=== PATIENT | male | born 1990 | race Caucasian/White ===

== ENCOUNTER 2017-09-01 19:50 | Emergency (ER) | payer OTHER ==
[~2017-09-01] VITALS: Ht 172.7 cm; Wt 67.5 kg
[2017-09-01 19:53] VITALS: TEMP 37.8; Ht 172.7 cm; Wt 67.5 kg
[2017-09-01] MEDS ORDERED: KETOROLAC TROMETHAMINE 30 MG/ML VIAL IV STA (20:08)
[2017-09-01] MEDS ORDERED: SODIUM CHLORIDE 0.9% 1000ML 2,000 ML IV STA (20:08)
[2017-09-01 20:21] VITALS: O2SAT 97
--- NOTE | 2017-09-01 20:27 | EMERGENCY ROOM VISIT NOTE ---
History First contact with patient: 19:57 Chief Complaint: FLU LIKE SX Stated Complaint: 102 FEVER,HEAD CONGESTION,MUSCLE ACHES History of Present Illness The patient is a 27 year old male who presents to the Emergency Room with complaints of bilateral lower back pain, body aches, headaches, cough and congestion, and fevers that started this morning. He reports fevers up to 102 today. He has been taking Sudafed and Tylenol for his symptoms, his last dose of Tylenol was 7 PM today. He denies any chest pain, shortness of breath, palpitations, dizziness or syncope, neck pain or stiffness, abdominal pain, nausea, vomiting, diarrhea, bloody or black stool, or rash. He denies any urinary symptoms of frequency, urgency, or dysuria, but does state that he has had decreased urination and his urine has been darker than usual. He states he did not get a flu shot this year. 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 Review of Systems A complete 10 point review of systems was reviewed with the patient with pertinent positives and negatives as per history of present illness. All else were negative. Past Medical/Surgical History No significant past medical or surgical history Social History Smoking Status: Never Smoker Alcohol Use: occasionally Drug Use: marijuana Occupation Status: [employer] Current/Historical Medications Scheduled Oseltamivir Phosphate (Tamiflu), 1 CAP PO BID Allergies No known allergies Physical Exam Vital Signs Date Time Temp Pulse Resp B/P (MAP) Pulse Ox O2 Delivery O2 Flow Rate FiO2 09/01/17 22:52 103 15 129/59 100 09/01/17 21:56 99 09/01/17 21:36 96 12 118/59 98 Room Air 09/01/17 20:21 97 Room Air 09/01/17 19:53 37.8 126 16 141/77 97 Room Air Physical Exam CONSTITUTIONAL: Pleasant and cooperative. No acute distress, nontoxic- appearing. Moderately dehydrated. HEENT: Normocephalic, atraumatic. Pupils equal, round and reactive to light, EOMI. TMs normal. Pharynx normal. Dry mucous membranes. NECK: Supple, full active range of motion without discomfort. No nuchal rigidity, no meningismus. No cervical adenopathy. RESPIRATORY: Clear to auscultation bilaterally with no wheezing, crackles, rhonchi or stridor. Equal expansion bilaterally. CARDIOVASCULAR: Tachycardic. Regular rhythm with no murmurs, rubs or gallops. Normal peripheral perfusion. No edema. GASTROINTESTINAL: Soft, nontender, nondistended. No palpable masses or HSM. Bowel sounds present in all quadrants. MUSCULOSKELETAL: Full range of motion of all joints without discomfort. INTEGUMENTARY: No rash or other significant dermatologic conditions noted. NEUROLOGIC: Alert and oriented X 4 with normal affect. Cranial nerves II-XII grossly intact. No focal neurologic deficits noted. Normal strength and sensation all 4 extremities, normal speech, normal gait observed. Medical Decision & Procedures ER Provider Diagnostic Interpretation: TWO VIEW CHEST CLINICAL HISTORY: Fever. Sepsis. FINDINGS: PA and lateral chest radiographs are obtained. No prior studies are available for comparison at the time of dictation. The cardiomediastinal silhouette is unremarkable. The lungs and pleural spaces are clear. There is no pneumothorax. The bony thorax appears intact. There is mild thoracolumbar scoliosis. IMPRESSION: No active disease in the chest. Laboratory Results 09/01/17 20:29 Red Blood Count 5.42, Mean Corpuscular Volume 83.6, Mean Corpuscular Hemoglobin 30.4, Mean Corpuscular Hemoglobin Concent 36.4, Mean Platelet Volume 10.4, Neutrophils (%) (Auto) 84.6, Lymphocytes (%) (Auto) 5.7, Monocytes (%) (Auto) 8.9, Eosinophils (%) (Auto) 0.6, Basophils (%) (Auto) 0.1, Neutrophils # (Auto) 5.79, Lymphocytes # (Auto) 0.39, Monocytes # (Auto) 0.61, Eosinophils # (Auto) 0.04, Basophils # (Auto) 0.01 09/01/17 20:29 Test 09/01/17 20:20 09/01/17 20:29 Urine Color YELLOW Urine Appearance CLEAR (CLEAR) Urine pH >= 9.0 (4.5-7.5) Urine Specific [place] 1.021 (1.000-1.030) Urine Protein NEG (NEG) Urine Glucose (UA) NEG (NEG) Urine Ketones NEG (NEG) Urine Occult Blood NEG (NEG) Urine Nitrite NEG (NEG) Urine Bilirubin NEG (NEG) Urine Urobilinogen NEG (NEG) Urine Leukocyte Esterase NEG (NEG) Influenza Type A Antigen Neg for Influ A (NEG) Influenza Type B Antigen Neg for Influ B (NEG) White Blood Count 6.85 K/uL (4.8-10.8) Red Blood Count 5.42 M/uL (4.7-6.1) Hemoglobin 16.5 g/dL (14.0-18.0) Hematocrit 45.3 % (42-52) Mean Corpuscular Volume 83.6 fL (80-100) Mean Corpuscular Hemoglobin 30.4 pg (25-34) Mean Corpuscular Hemoglobin Concent 36.4 g/dl (32-36) Platelet Count 179 K/uL (130-400) Mean Platelet Volume 10.4 fL (7.4-10.4) Neutrophils (%) (Auto) 84.6 % Lymphocytes (%) (Auto) 5.7 % Monocytes (%) (Auto) 8.9 % Eosinophils (%) (Auto) 0.6 % Basophils (%) (Auto) 0.1 % Neutrophils # (Auto) 5.79 K/uL (1.4-6.5) Lymphocytes # (Auto) 0.39 K/uL (1.2-3.4) Monocytes # (Auto) 0.61 K/uL (0.11-0.59) Eosinophils # (Auto) 0.04 K/uL (0-0.5) Basophils # (Auto) 0.01 K/uL (0-0.2) RDW Standard Deviation 37.3 fL (36.4-46.3) RDW Coefficient of Variation 12.3 % (11.5-14.5) Immature Granulocyte % (Auto) 0.1 % Immature Granulocyte # (Auto) 0.01 K/uL (0.00-0.02) Anion Gap 10.0 mmol/L (3-11) Est Creatinine Clear Calc Drug Dose 86.3 ml/min Estimated GFR () 92.2 Estimated GFR (Non- 79.5 BUN/Creatinine Ratio 8.0 (10-20) Lactic Acid Level 2.7 mmol/L (0.4-2.0) Calcium Level 10.2 mg/dl (8.5-10.1) Total Bilirubin 0.6 mg/dl (0.2-1) Direct Bilirubin 0.1 mg/dl (0-0.2) Aspartate Amino Transf (AST/SGOT) 18 U/L (15-37) Alanine Aminotransferase (ALT/SGPT) 35 U/L (12-78) Alkaline Phosphatase 72 U/L (45-117) Total Protein 8.7 gm/dl (6.4-8.2) Albumin 4.7 gm/dl (3.4-5.0) Medications Administered Medications (Trade) Dose Ordered Sig/Jennifer Route Start Time Stop Time Status Last Admin Dose Admin Ketorolac Tromethamine (Toradol Inj) 15 mg NOW STAT IV 09/01/17 20:08 09/01/17 20:12 DC 09/01/17 20:39 15 MG Sodium Chloride 2,000 ml @ 999 mls/hr Q2H1M STAT IV 09/01/17 20:08 09/01/17 22:08 DC 09/01/17 20:08 999 MLS/HR Sodium Chloride 1,000 ml @ 999 mls/hr Q1H1M STAT IV 09/01/17 21:28 09/01/17 22:28 DC 09/01/17 21:28 999 MLS/HR Oseltamivir Phosphate (Tamiflu Cap) 75 mg NOW STAT PO 09/01/17 21:28 09/01/17 21:29 DC 09/01/17 21:37 75 MG ECG Indication: tachycardia Rate (beats per minute): 99 Rhythm: normal sinus Findings: no acute ischemic change, no ectopy Comparison ECG Date: no prior available Medical Decision CC: Patient presenting with complaint of flulike symptoms and back pain Interpretation of Labs: No leukocytosis, no anemia, no significant electrolyte abnormalities, normal renal function, normal liver enzymes. Lactic acid is elevated. Influenza testing is negative. UA negative. Differential Diagnosis: Includes, but not limited to influenza, viral URI, bronchitis, pneumonia, dehydration, UTI, among others. Medication Reconciliation: I attest that I have personally reviewed the patient' s current medication list. Initial vital signs review: I reviewed the patient's vital signs and interpret them as follows: T: Febrile; BP: Hypertensive; HR: Tachycardic; RR: Within normal limits; Pulse Ox: Within normal limits on room air. Blood pressure screening: The patient was found to have an elevated blood pressure, this was felt to be situational. Summary: Patient was evaluated at bedside, history and physical exam performed. Patient's alert and oriented, no acute distress and nontoxic appearing, resting , in the stretcher. Patient is noted to be febrile and tachycardic on exam. He does appear to be moderately dehydrated as well. Orders were placed at bedside for labs, UA, influenza test, IV Toradol for body aches and fevers, IV fluids for hydration, chest x-ray to evaluate for pneumonia. Patient discussed with Dr. Hayward, who agrees with my assessment and plan. EKG shows normal sinus rhythm by my interpretation. Labs reviewed as above, lactic acid is noted to be mildly elevated, suspect this is secondary to dehydration. The patient was aggressively hydrated with 2 L of IV fluids, he was feeling much improved and his tachycardia was downtrending after this. He has also urinated twice while in the ED, and is tolerating oral fluids well.. Patient reassessed multiple times throughout ED stay, he reports feeling much improved after IV fluids and Toradol. His tachycardia continues to be improved. He reports that his headache and body aches are also resolved. Patient was updated on all results and plan for discharge home, he was encouraged to follow closely with his primary care provider. Patient was also given strict return precautions should his symptoms worsen, he verbalized understanding. Patient was discharged home in stable condition and ambulatory. Impression Primary Impression: Influenza-like symptoms Departure Information Dispostion Home / Self-Care Condition GOOD Prescriptions Oseltamivir Phosphate (Tamiflu) 75 Mg Cap 1 CAP PO BID for 5 Days, #9 CAP Prov: Sia Jama CRNP 09/01/17 Referrals No Doctor, Assigned (PCP) Patient Instructions ED Dehydration, ED Flu, [facility] Additional Instructions You have been treated in the Emergency Department today for Dehydration. It is suspected that you have influenza, which is most likely the cause of all of your symptoms. Influenza is a type of virus that should run its course and symptoms should be improved after 7-10 days, but may last up to 14 days. You have been prescribed Tamiflu, take one capsule twice a day for 5 days. For fevers and body aches/headaches, you may take the following over-the- counter medications: - Extra strength Tylenol (500 mg) 1-2 tablets every 6-8 hours as needed. Do not take more than 6 tablets (3000 mg) in 24 hours. - Ibuprofen (200 mg) 3 tablets every 6-8 hours as needed. Do not take more than 2400 mg in 24 hours. - For best results, you may alternate between the Tylenol and the ibuprofen every 3-4 hours for severe body aches and fevers. It is ESSENTIAL that you maintain adequate hydration with oral fluids! Some suggestions include: - Water is the IDEAL replacement for lost fluids. You should initially sip at the water to help facilitate increased intestinal absorption rate and to decrease the possibility of nausea/vomiting. - Carbohydrate/Electrolyte-Containing Drinks (i.e. Gatorade, Powerade, Pedialyte). All of these are good choices, but it is important to remember that all of these drinks contain a high concentration of sugar. - Popsicles, ice chips, and fruit juices are all other options. - My FAVORITE dehydration remedy is to mix a 1:1 solution of bottled Gatorade with bottled water. This dilution allows for a palatable flavor with added benefit of a reduction in the amount of sugar consumption. As with all Emergency Department visits, you should follow-up with your Primary Care Provider in 2-3 days for reevaluation. Please return to the emergency department for any worsening symptoms, including difficulty breathing, chest pain, coughing up blood, severe dizziness or passing out, confusion, severe headache, or any other concerns. Work Instructions Return To Work: 2 days
--- NOTE | 2017-09-01 21:06 | DIAGNOSTIC IMAGING REPORT ---
TWO VIEW CHEST CLINICAL HISTORY: Fever. Sepsis. FINDINGS: PA and lateral chest radiographs are obtained. No prior studies are available for comparison at the time of dictation. The cardiomediastinal silhouette is unremarkable. The lungs and pleural spaces are clear. There is no pneumothorax. The bony thorax appears intact. There is mild thoracolumbar scoliosis. IMPRESSION: No active disease in the chest. Electronically signed by: Usman Piña M.D. 09/01/2017 9:05 PM Dictated Date/Time: 09/01/2017 9:04 PM
[2017-09-01 21:07] LABS: BASO % 0.1 %; BASO ABS # 0.01 K/uL (0-0.2); EOS % 0.6 %; EOS ABS # 0.04 K/uL (0-0.5); HEMATOCRIT 45.3 % (42-52); HEMOGLOBIN 16.5 g/dL (14.0-18.0); IG# 0.01 K/uL (0.00-0.02); LYMPH % 5.7 %; LYMPH ABS # 0.39 K/uL (1.2-3.4); MEAN CELL VOLUME 83.6 fL (80-100); MEAN CORPUSCULAR HEMOGLOBIN 30.4 pg (25-34); MEAN CORPUSCULAR HGB CONC 36.4 g/dl (32-36); MEAN PLATELET VOLUME 10.4 fL (7.4-10.4); MONO % 8.9 %; MONO ABS # 0.61 K/uL (0.11-0.59); NEUT % 84.6 %; NEUT ABS # 5.79 K/uL (1.4-6.5); PLATELET COUNT 179 K/uL (130-400); RED CELL DISTRIBUTION WIDTH CV 12.3 % (11.5-14.5); RED CELL DISTRIBUTION WIDTH SD 37.3 fL (36.4-46.3); WHITE BLOOD COUNT 6.85 K/uL (4.8-10.8)
[2017-09-01 21:20] LABS: ALBUMIN 4.7 gm/dl (3.4-5.0); CALCIUM 10.2 mg/dl (8.5-10.1); CREATININE 1.25 mg/dl (0.60-1.40); POTASSIUM 3.5 mmol/L (3.5-5.1)
[2017-09-01 21:20] LABS: INFLUENZA B ANTIGEN Neg for Influ B (NEG)
[2017-09-01 21:23] LABS: TOTAL PROTEIN 8.7 gm/dl (6.4-8.2)
[2017-09-01] MEDS ORDERED: OSEL75CA23 PO (21:27)
[2017-09-01] MEDS ORDERED: OSELTAMIVIR PHOSPHATE 75 MG CAP PO STA (21:28)
[2017-09-01] MEDS ORDERED: SODIUM CHLORIDE 0.9% 1000ML 1,000 ML IV STA (21:28)
[2017-09-01 22:52] VITALS: BP 129/59; PULSE 103; O2SAT 100
== END 2017-09-01 22:57 | disposition home or self-care (01) ==
LOC: C.EDB 19:52 → C.EDA 22:57
DX: J11.1 Influenza due to unidentified influenza virus with other respiratory manifestations (principal)